=== PATIENT | female | born 1990 | race Caucasian/White ===

== ENCOUNTER 2024-07-16 10:00 | Outpatient (CLI) | payer MEDICAID, SELFPAY ==
[2024-07-16 16:46] LABS: Chlamydia DNA Amplified* NOT DETECTED (No Detected); GC DNA Amplified* NOT DETECTED (No Detected)
== END 2024-07-16 10:01 | disposition home or self-care (01) ==
PROVIDERS: Visit Provider Physician Assistant
DX: Z34.91 Encounter for supervision of normal pregnancy, unspecified, first trimester (principal); Z3A.11 11 weeks gestation of pregnancy
CPT/HCPCS: 83021; 86592; 86703; 86704; 86706; 86762; 86787; 86803; 86850; 86900; 86901; 87086; 87340; 87491; 87591

== ENCOUNTER 2024-09-27 10:01 | Outpatient (CLI) | payer MEDICAID, SELFPAY ==
--- NOTE | 2024-09-27 10:00 | CRLHL7_ITS ---
For Patients: As a result of the 21st Century Cures Act, medical imaging exams and procedure reports are released immediately into your electronic medical record. You may view this report before your referring provider. If you have questions, please contact your health care provider. INDICATION: Evaluate anatomy. COMPARISON: none TECHNIQUE: Real time birmingham scale imaging of the fetus was performed as well as color Doppler analysis of the umbilical vessels. FINDINGS: Sonographic imaging demonstrates a single living intrauterine gestation. Fetus demonstrates a regular cardiac rate of 139 beats per minute. Fetus has a vertex position. The placenta lies posteriorly without evidence of placenta previa. Placental edge 7.9 cm from the internal cervical os. Amniotic fluid volume appears normal. Single deepest vertical pocket: 6.3 cm. The cervix is closed and measures 4.9 cm in length. The composite ultrasound gestational age is calculated at 21 weeks 3 days with an estimated sonographic due date of 02/04/2025. The estimated weight is 421 grams which lies at the 92nd %. The following biometric measurements were obtained: Biparietal diameter: 5.2 cm/21 weeks 6 days 93rd% Head circumference: 19.1 cm/21 weeks 3 days 81st% Abdominal circumference: 16.8 cm/21 weeks 5 days 84th% Femur length: 3.5 cm/21 weeks 0 days 60th% The HC/AC ratio measures: 1.14 range (1.06-1.24) On anatomic survey, there is incomplete visualization of the cerebral ventricles, cavum septi pellucidi, cisterna magna and cerebellum. The nose, lips, and facial profile appear normal. The cervical, thoracic and lumbar spine are not well visualized. There is a normal four-chamber heart view and the left and right ventricular outflow tracts appear normal. The diaphragm and stomach appear normal. The bladder is normal. Bilateral pelviectasis measuring 5.9 millimeters on the left and 5.2 millimeters on the right. There is a normal three-vessel cord. Marginal placental cord insertion 1.96 cm from the placental edge. The four extremities appear normal. IMPRESSION: Bilateral renal pelviectasis measuring 5.9 millimeters on the left and 5.2 millimeters on the right. Follow-up in the 3rd trimester recommended. Incomplete visualization of the cerebellum, cisterna magna, nuchal fold, lateral ventricle and cavum septum pellucidum. Also incomplete visualization of the spine. Follow-up recommended. Marginal placental cord insertion 1.96 cm from the placental edge. Sonographic gestational age 21 weeks 3 days and sonographic due date of 02/04/2025. Sonographic age 1 week ahead of the clinical age. Estimated weight 92nd percentile. Abdominal circumference 84th percentile. Dictated by Usama Hopkins MD @ 09/27/2024 6:50:03 PM (Electronically Signed)
== END 2024-09-27 10:02 | disposition home or self-care (01) ==
LOC: US 10:01
PROVIDERS: Visit Provider Advanced Practice Midwife
DX: Z34.92 Encounter for supervision of normal pregnancy, unspecified, second trimester (principal); O35.8XX0 Maternal care for other (suspected) fetal abnormality and damage, not applicable or unspecified; Z3A.21 21 weeks gestation of pregnancy
CPT/HCPCS: 76805; 76817

== ENCOUNTER 2024-10-11 09:25 | Outpatient (CLI) | payer MEDICAID, SELFPAY | END 2024-10-11 09:26 | disposition home or self-care (01) | PROVIDERS: Visit Provider Advanced Practice Midwife | DX: Z36.2 Encounter for other antenatal screening follow-up (principal); R93.89 Abnormal findings on diagnostic imaging of other specified body structures; Z3A.22 22 weeks gestation of pregnancy | CPT/HCPCS: 76816 ==

== ENCOUNTER 2024-11-29 09:38 | Outpatient (CLI) | payer MEDICAID, SELFPAY ==
[2024-11-29 10:01] VITALS: BP 125/57; PULSE 91
[2024-11-29 10:02] VITALS: RESP 16; TEMP 36.6; O2SAT 97
[2024-11-29 10:27] LABS: Amnisure Rom* Negative
--- NOTE | 2024-11-29 11:24 | PC.OBNST ---
NST Note NST Note Start: 11/29/24 09:43 Freq: ONCE Status: Active Protocol: Document 11/29/24 10:40 CARLOS (Rec: 11/29/24 11:24 CARLOS No Response) NST Note 8 Para (# of births) 2 EDC 02/11/25 Gestational Age In Weeks & Days 29 Weeks & 3 Days Patient Presented with Complaint(s) of Leaking fluid Reactive Yes Appropriate for Gestational Age Yes AMNA Jung, RNC Date 11/29/24 Reactive Yes Appropriate for Gestational Age Yes AMNA Martinez, RNC Date 11/29/24 OB NST charge Yes Complete NST Note via Write Note Yes The provider's electronic signature indicates the NST is reactive/appropriate for gestational age. *Note to provider: If an addendum is required, open the patient's chart and click on the note under the Nurse/Allied Health tab.
== END 2024-11-29 10:44 | disposition home or self-care (01) ==
LOC: OB OUT 09:40 → OB 09:41
PROVIDERS: Visit Provider Midwife
DX: O47.03 False labor before 37 completed weeks of gestation, third trimester (principal); Z3A.29 29 weeks gestation of pregnancy
CPT/HCPCS: 59025; 84112; G0463

== ENCOUNTER 2024-12-02 14:39 | Outpatient (CLI) | payer MEDICAID, SELFPAY | END 2024-12-02 14:40 | disposition home or self-care (01) | LOC: NFLDREF 14:40 | PROVIDERS: Visit Provider Advanced Practice Midwife | DX: Z34.83 Encounter for supervision of other normal pregnancy, third trimester (principal); Z67.41 Type O blood, Rh negative | CPT/HCPCS: 86592; 86850; J2791 ==

== ENCOUNTER 2024-12-20 09:12 | Outpatient (CLI) | payer MEDICAID, SELFPAY ==
--- NOTE | 2024-12-20 09:15 | CRLHL7_ITS ---
For Patients: As a result of the Cures Act, medical imaging exams and procedure reports are released immediately into your electronic medical record. You may view this report before your referring provider. If you have questions, please contact your health care provider. OBSTETRICAL ULTRASOUND ??? FOLLOW-UP, 12/20/2024 INDICATION: Follow-up renal pelviectasis. CLINICAL HISTORY: LOCO by US: 02/11/2025 Gestational Age: 32 weeks 3 days COMPARISON: 10/11/2024, 09/27/2024 TECHNIQUE: Real-time birmingham-scale transabdominal imaging of the fetus was performed. FINDINGS: Fetus: Single Cervix: Not visualized positioning: Vertex Amniotic Fluid: 5.4 cm SDP Placenta technique: Transabdominal Placenta position: Posterior heart rate: 155 bpm IMPRESSION: Left renal pelvis measures 6.7 mm. Right renal pelvis measures 3.9 mm. Normal is considered less than 7 mm at this gestational age. USAMA WHITE M.D. Diagnostic Radiologist [email or web address] Transcribed: 10:[address]/Dictated by: Usama White MD @ 12/20/2024 9:48:00 AM (Electronically Signed)
== END 2024-12-20 09:13 | disposition home or self-care (01) ==
LOC: US 09:12
PROVIDERS: Visit Provider Advanced Practice Midwife
DX: O26.893 Other specified pregnancy related conditions, third trimester (principal); R93.89 Abnormal findings on diagnostic imaging of other specified body structures; Z3A.32 32 weeks gestation of pregnancy
CPT/HCPCS: 76816

== ENCOUNTER 2025-01-06 16:53 | Outpatient (CLI) | payer MEDICAID, SELFPAY ==
[2025-01-06 17:22] VITALS: PULSE 90; O2SAT 97
[2025-01-06 17:25] VITALS: BP 118/63; PULSE 90
[2025-01-06 17:32] LABS: Appearance Urine Clear (Clear); Bilirubin Urine Negative (Negative); Blood Urine Negative (Negative); Color Urine Yellow (Yellow); Glucose Urine Negative (Negative); Ketones Urine Negative (Negative); Leukocyte Esterase Urine 1+ (Negative); Nitrite Urine Negative (Negative); Protein Urine Trace (Negative); Specific Gravity Urine 1.025 (1.000-1.030); Urobilinogen Urine 0.2 (0.2-1.0)
[2025-01-06 17:52] LABS: Bacteria Urine Moderate; Squamous Epithelial Cell Urine Few (None-Few)
--- NOTE | 2025-01-06 18:05 | P.OBLDTN_ITS ---
OB - Triage/Final Diagnosis Visit Information Time Seen by Provider: 18:05 Date Seen: 01/06/25 Narrative: El is a 34 year old 8 para to at 34 and 6/7 weeks gestation, who presents with contractions every 7 minutes for an hour before presenting to the center. She states that her contractions have become more painful over the last 45 minutes. She reports her baby has been moving normally. Denies leaking fluid or vaginal bleeding. Contractions now our every 4-5 minutes. Cervical exam by nurse at 5:25 p.m. was 1.5/60%/-3. Urinalysis showed trace protein and 1+ leukocyte esterase with the micro analysis showing moderate bacteria, 2-5 rbc's/HPF and 2-5 wbc's/HPF soak possibly have a urinary tract infection. She was given a prescription for Macrobid 100 mg p.o. b.i.d. for 7 days while awaiting the urine culture results. The nurse will also recheck her at 1825 or later see if there is any evidence of cervical change. Both of her previous children were born at term. Recheck SVE at about 1900 to assess for cervical change. Encourage hydration. SVE unchanged after 2 hours. Given vistaril PO and morphine IM and one dose of macrobid prior to discharge. Reason for evaluation: threatened labor Evaluation Cervical dilation (cm): 1 Cervical effacement (%): 60 Laboratory results: Laboratory Tests 01/06/25 Range/Units 17:21 Urine Color Yellow (Yellow) Urine Appearance Clear (Clear) Urine pH 7.0 (5.0-8.5) Ur Specific Roy 1.025 (1.000-1.030) Urine Protein Trace A (Negative) Urine Glucose (UA) Negative (Negative) Urine Ketones Negative (Negative) Urine Blood Negative (Negative) Urine Nitrite Negative (Negative) Urine Bilirubin Negative (Negative) Urine Urobilinogen 0.2 (0.2-1.0) Ur Leukocyte Esterase 1+ A (Negative) Urine RBC 2-5 A (0-2) Urine WBC 2-5 (0-5) Ur Squamous Epith Cells Few (None-Few) Urine Bacteria Moderate A (None) Vital signs: Vital Signs - 24 hr 01/06/25 17:22 01/06/25 17:25 Pulse Rate 90 Blood Pressure 118/63 Pulse Oximetry 97 Fetus (Single) Heart Rate Baseline: 130 Fabricator Artificial Breast Variability: Moderate (6-25) Monitor Accelerations: Present Monitor Decelerations: None Station: -3
[2025-01-06] MEDS: hydrOXYzine pamoate 25 MG CAPSULE 100 MG PO (20:03)
[2025-01-06] MEDS: NITROFURANTOIN MONOHYD MACRO 100 MG CAPSULE PO (20:03)
[2025-01-06] MEDS: MORPHINE 10 MG/ML inj IM (20:06)
--- NOTE | 2025-01-06 20:38 | PC.OBNST ---
NST Note NST Note Start: 01/06/25 17:07 Freq: ONCE Status: Active Protocol: Document 01/06/25 17:07 RRP (Rec: 01/06/25 20:38 RRP [id number]) NST Note 8 Para (# of births) 2 EDC 02/11/25 Gestational Age In 34 Weeks & 6 Days Weeks & Days Patient Presented Contractions/cramping with Complaint(s) of Reactive Yes Appropriate for Yes Gestational Age AMNA Hinton RN Date 01/06/25 Reactive Yes Appropriate for Yes Gestational Age AMNA Ferguson Date 01/06/25 OB NST charge Yes Complete NST Note Yes via Write Note The provider's electronic signature indicates the NST is reactive/appropriate for gestational age. *Note to provider: If an addendum is required, open the patient's chart and click on the note under the Nurse/Allied Health tab.
== END 2025-01-06 20:25 | disposition home or self-care (01) ==
LOC: OB OUT 16:53 → OB 16:55 → OB OUT 16:57 → OB 17:04
PROVIDERS: Visit Provider Obstetrics & Gynecology
DX: O47.03 False labor before 37 completed weeks of gestation, third trimester (principal); Z3A.34 34 weeks gestation of pregnancy
CPT/HCPCS: 59025; 81001; 81003; 87086; G0463; A9270; J2270

== ENCOUNTER 2025-01-20 14:15 | Outpatient (CLI) | payer MEDICAID, SELFPAY ==
[2025-01-21 17:18] LABS: Strep B DNA Probe Negative (Negative)
[2025-01-21 18:18] LABS: Strep B Susceptibility Needed? No
== END 2025-01-20 14:16 | disposition home or self-care (01) ==
LOC: FRMREF 14:15
PROVIDERS: Visit Provider Registered Nurse
DX: Z34.93 Encounter for supervision of normal pregnancy, unspecified, third trimester (principal); Z3A.37 37 weeks gestation of pregnancy
CPT/HCPCS: 82728; 87081; 87653

== ENCOUNTER 2025-01-25 10:12 | Outpatient (RCR) | payer MEDICAID, SELFPAY ==
[2025-01-25 10:22] VITALS: BP 125/86; PULSE 90; RESP 16; TEMP 37.2; O2SAT 98
[2025-01-25] MEDS: SODIUM CHLORIDE 0.9 % (FLUSH) 10 ML SYRINGE IVF (10:48)
[2025-01-25] MEDS: IRON DEXTRAN COMPLEX 25 MG in 0.9 % SODIUM CHLORIDE 100 ml 100 ML 402 MG IVPB (11:20)
[2025-01-25 11:39] VITALS: BP 121/78; PULSE 86; RESP 16; O2SAT 97
[2025-01-25] MEDS: IRON DEXTRAN COMPLEX 975 MG in 0.9 % SODIUM CHLORIDE 250 ml 250 ML 270 MG IVPB (12:24)
[2025-01-25 13:33] VITALS: BP 130/81; PULSE 88; RESP 16; O2SAT 97
== END 2025-07-24 23:59 | disposition home or self-care (01) ==
LOC: CCIC 10:12
PROVIDERS: Visit Provider Clinical Nurse Specialist
DX: O99.013 Anemia complicating pregnancy, third trimester (principal); D50.9 Iron deficiency anemia, unspecified
CPT/HCPCS: 96365; J1750; J7050

== ENCOUNTER 2025-02-04 13:15 | Inpatient (IN) | payer MEDICAID, SELFPAY ==
[2025-02-04] VITALS (174 sets, daily range): BP systolic 76–156; BP diastolic 47–78; PULSE 67–105; RESP 18–20; TEMP 36.6–37.1; O2SAT 89–100; BMI 32.4
--- NOTE | 2025-02-04 13:54 | P.LDBA_ITS ---
Subjective History of Present Illness Narrative: Patient is being admitted to Labor and Delivery for induction of labor. She is a 34 year old at 39 0/7 weeks gestation. Her full history and physical was dictated by Dr. Gill on 10/28/24. Please see this for details. She feels well today. Her fetus is active. She is experiencing uterine contractions, though they are mild. She does feel lot of pressure in the pelvis and feels like the fetus a going to fall out. She has a history of fast labors and macrosomia. Specific Issues/Plans Partner: Heri, Son Awilda 8#13oz, daughter Alessandro 9#3oz, It is another boy! H&P: 01/28 Dr. Gill # history recurrent loss x4 3 losses at approx. 6 weeks, 1 loss at 11 weeks. No workup or evaluation performed #LGA-F/U US ordered for 32w-not completed. Declines when reviewed at 35wks. Will consider if measuring large for dates. # history of macrosomia. First , 9 lb 10 oz Normal 1 hour GTT at 133 No history of shoulder dystocia # Rh-negative RhoGAM: given 12/02 # COVID at 14 weeks # h/o abdominoplasty 2 years ago. Significant keloid scarring lower abdomen #Bilateral renal pelviectasis: resolved #Anemia at 29.6 weeks iron supplementation started Hemoglobin 9.6, ferritin 5.6 on January 20 weeks 6 days Iron infusion given 01/20/25 Imaging: Anatomy US-09/27/24- Bilateral renal pelviectasis measuring 5.9 millimeters on the left and 5.2 millimeters on the right. Follow-up in the 3rd trimester recommended. Incomplete visualization of the cerebellum, cisterna magna, nuchal fold, lateral ventricle and cavum septum pellucidum. Also incomplete visualization of the spine. Follow-up recommended. Marginal placental cord insertion 1.96 cm from the placental edge. Sonographic gestational age 21 weeks 3 days and sonographic due date of 02/04/2025. Sonographic age 1 week ahead of the clinical age. Estimated weight 92nd percentile. Abdominal circumference 84th percentile 10/11: Bilateral renal pelviectasis measuring 5.1 mm on the left, 2.7 mm on the right. Placental cord insertion 3.7 cm from placental edge. Normal spine, cisterna magna, lateral ventricles, cerebellum, and cavum septum pellucidum. 12/20: Cephalic, SDP 5.4 cm, posterior placenta, left renal pelvis 6.7 mm, right renal pelvis 3.9 mm. Vaccinations: COVID: declines Flu: declines Tdap: 12/20/2024 RSV: NA GBS negative 32 week mental health: 12/20/24 Last pap: Uncertain, prefers Pap OB - Problem Based A/P Delivery/Labor/Induction Plan Plan: induction Induction method: AROM OB Result Labs Blood Type: 0 (-) negative Rubella: immune RPR/VDLR: nonreactive GBS Status: negative HBsAG: negative OB Exam Physical Exam Vital signs: Pulse Ox 98 02/04/25 13:33 Detailed Labor and Delivery Exam Patient Gravid: yes Dilation (cm): 5 Effacement (%): 80 Cervix position: posterior Consistency: soft Contraction Frequency: 3-4 minutes Tachysystole: No Contraction intensity: Mild Fetus (Single) Station: -1 Amniotic Membrane Status: AROM Amniotic Membrane Fluid Description: Clear Heart Rate Baseline: 130 Monitor Accelerations: Present Monitor Decelerations: None 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
[2025-02-04 14:43] LABS: Basophils Percent Auto 0.3 % (0.0-3.0); Eosinophils Percent Auto 0.9 % (0.0-7.0); Hematocrit 33.1 % (33.0-51.0); Hemoglobin* 10.3 gm/dL (12.0-16.0); Immature Granulocytes Pct Auto 0.9 %; Lymphocytes Percent Auto 14.6 % (20-44); Mean Corpuscular HGB Conc 31 gm/dL (32-36); Mean Corpuscular Hemoglobin 24 pg (26-34); Mean Corpuscular Volume 78 fL (80-100); Monocytes Percent Auto 4.8 % (0.0-11.0); Neutrophils Percent Auto 78.5 % (42.0-72.0); Platelet Count* 178 K/uL (140-440); RDW Coefficient of Variation % 21.7 % (11.5-15.5); Red Blood Count 4.22 m/uL (4.00-5.20); White Blood Count* 12.82 K/uL (4.50-11.00)
[2025-02-04] MEDS: LACTATED RINGERS 1000 ML 1,000 ML 500 ML IV (14:45)
[2025-02-04 14:59] LABS: Slide Review Reflex No
[2025-02-04] MEDS: fentaNYL 250 MCG/5 ML inj 100 MCG EPIDURAL (15:44)
[2025-02-04] MEDS: LIDOCAINE 2% (PF) 5 ML VIAL EPIDURAL (15:44)
[2025-02-04] MEDS: ROPIVACAINE 0.2% 100 ml 100 ML 12 MG EPIDURAL (15:44)
[2025-02-04] MEDS: PHENYLEPHRINE 100 MCG/ML SYRINGE IVP ×7 (15:53→16:47)
--- NOTE | 2025-02-04 15:58 | PM.ANBPRC ---
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 Marital status: Significant other. Buddhist/cultural needs: no. Chemical or radiation exposure: no. Pre- tobacco use: no. Pre- alcohol use: no. Current tobacco use: no. Current alcohol use: no. Recreational drug use: no. Dietary restrictions: no. Blood transfusion acceptable in an emergency: yes. PSYCHOSOCIAL HISTORY: History of depression or currently depressed: no. Current or past physical, emotional, or sexual mistreatment: no. Problems that will make it hard to make it to appointments: no. What is your current living situation?: I presently have a place to live Problems where you live: no known problems In the past 12 months, utilities in danger of being shut off: no In past 12 months, lack of transportation kept you from medical appts, meetings, work, or getting things needed for daily living: no In the past 12 mos, have been you worried that your food would run out before you had money to buy more?: never true In the past 12 mos, the food you bought just didn't last and you didn't have money to buy more?: never true Smoking Status: Never smoker How often does anyone, including family, friends and others, physically hurt you: never How often does anyone, including family, friends and others, insult or talk down to you: never How often does anyone, including family, friends and others, threaten you with harm: never How often does anyone, including family, friends and others, scream or curse at you: never Meds Home Medications and Allergies Home Medications ?Medication ?Instructions ?Recorded ?Confirmed ?Type acetaminophen 500 mg tablet 500 mg PO Q6H PRN 07/16/24 02/04/25 History (Tylenol Extra Strength) vit 168-iron 27 mg-folic 1 cap PO .QD 08/17/24 02/04/25 History acid 800 mcg-omega3 235 mg capsule (One-A-Day -1) ferrous sulfate 325 mg (65 mg 325 mg PO Q OTHER DAY #60 tabs 12/02/24 02/04/25 Rx iron) tablet Held on 01/25/25. Instructions: constipation omeprazole magnesium 20 mg 20 mg PO QDAY #90 tabs 01/10/25 02/04/25 Rx tablet,delayed release (Prilosec OTC) ondansetron HCl 4 mg tablet 4 mg PO Q8-12H PRN nausea and 01/10/25 02/04/25 Rx vomiting #14 tabs Allergies Allergy/AdvReac Type Severity Reaction Status Date / Time No Known Drug Allergies Allergy Verified 01/28/25 09:51 Results Labs Labs: Laboratory Results - last 24 hr 02/04/25 14:33 WBC 12.82 H RBC 4.22 Hgb 10.3 L Hct 33.1 MCV 78 L MCH 24 L MCHC 31 L RDW Coeff of Rubio 21.7 H Plt Count 178 Neut % (Auto) 78.5 H Lymph % (Auto) 14.6 L [place] % (Auto) 4.8 Eos % (Auto) 0.9 Baso % (Auto) 0.3 Neut # (Auto) 10.10 H Lymph # (Auto) 1.90 [place] # (Auto) 0.60 Eos # (Auto) 0.10 Baso # (Auto) 0.00 Abs Immat Gran (auto) 0.10 Imm/Tot Granulo (auto) 0.9 Vital Signs Vital Signs: Last Vital Signs Pulse 77 02/04/25 15:56 BP 93/55 L 02/04/25 15:56 Pulse Ox 98 02/04/25 15:57 Weight: 102.512 kg Height: 177.8 cm Anesthesia Procedures Epidural Insertion Patient Location: OB Start Time: 15:00 Stop Time: 16:00 Start Date: 02/04/25 Stop Date: 02/04/25 Reason for Block: primary anesthetic Patient Position: sitting Performed By: Jhony Banuelos Preanesthetic Checklist: IV checked, risks and benefits discussed, surgical consent, monitors and equipment checked, pre-op evaluation, timeout performed and anesthesia consent Prep: chlorhexidine gluconate Monitoring: blood pressure monitoring, dormitory supervisor, continuous pulse oximetry and heart rate Approach: midline Vertebral Space: lumbar (1-5) Needle Type: Tuohy needle Injection Technique: continuous catheter Needle gauge: 17 Needle Length (cm): 10 cm Needle Insertion Depth (cm): 6 Catheter Gauge: 19 Catheter Type: multi-orifice Catheter at skin depth (cm): 12 Test Dose Result: negative and lidocaine 1.5% with epinephrine 1 to 200,000 Events: other
[2025-02-04] MEDS: ePHEDrine sulfate 5 MG/ML inj 10 MG IVP ×3 (16:03→16:54)
[2025-02-04] MEDS: LACTATED RINGERS 1000 ML 1,000 ML 125 ML IV ×2 (16:18→20:06)
[2025-02-04] MEDS: ONDANSETRON 2 MG/ML inj 4 MG IV (16:18)
[2025-02-04] MEDS: ACETAMINOPHEN 500 MG TABLET 1000 MG PO (18:21)
[2025-02-04 18:29] LABS: Hematocrit 31.4 % (33.0-51.0); Hemoglobin* 9.7 gm/dL (12.0-16.0); Mean Corpuscular HGB Conc 31 gm/dL (32-36); Mean Corpuscular Hemoglobin 25 pg (26-34); Mean Corpuscular Volume 80 fL (80-100); Platelet Count* 159 K/uL (140-440); Red Blood Count 3.93 m/uL (4.00-5.20); White Blood Count* 12.77 K/uL (4.50-11.00)
[2025-02-04 18:30] LABS: Slide Review Reflex No
[2025-02-04 18:47] LABS: Alanine Aminotransferase* 19 U/L (4-35); Aspartate Amino Transferase* 25 U/L (12-35); Blood Urea Nitrogen* 9 mg/dL (5-24); Creatinine* 0.6 mg/dL (0.5-1.5); Est. Creatinine Clearance* 142.87; Estimated Glomerular Filt Rate 121 ml/min
--- NOTE | 2025-02-04 22:16 | W.PM.OBVAGDE ---
OB Procedure Vag Delivery Mother Details Mother Details: The patient is a 34 year-old, 8, Para 2, admitted on 02/04/25 at Days gestation. : 8 Para: 2 Weeks Gestation: 39 Admission Date: 02/04/25 Additional Details Amniotic Membrane Status: AROM Amniotic Membrane Rupture Date: 02/04/25 Amniotic Membrane Rupture Time: 13:51 Amniotic Membrane Fluid Description: Clear Analgesia/Anesthesia Type: Epidural Waterbirth: No Pitcoin: No Intrapartal Events: Labor Augmentation Delivery augmentation: rupture of membranes Labor Onset: 14:15 Complete: 21:24 Pushin:28 Heart: heart tones during second stage were: reassuring with moderate variability between contractions with episodic variable decelerations to the 90's. There was minimal descent of the vertex with the 1st 3 contractions during pushing and position was noted to be LOP so verbal consent was obtained to perform a manual rotation which occurred with rotation of the vertex in the counter clockwise direction. There was a deceleration of the heart rate to the 70s for approximately 2 minutes and then returned slowly to the 120s after another 2 minutes. The remainder of the 2nd stage was as described above. Delivery Details Delivery Date: 02/04/25 Delivery Time: 21:53 Route of delivery: Infant Gender: Male Viability: Alive; Heart Rate Present Position at Delivery: OA Delivery Details: A live male was delivered from the direct OA position 21:53. Delivered via spontaneous vaginal delivery over an intact perineum. was placed on maternal abdomen.? Cord was clamped and cut after a 60+ second delay. Nose and mouth were bulb suctioned.? Infant weight: 4530 g, 10 lb 0 oz. No lacerations. There was a short shoulder dystocia alleviated with McRobert's position: <10 seconds. 1 Minute Interval Total Score: 8 5 Minute Interval Total Score: 9 Additional Details Shoulder Dystocia: Yes (< 10 seconds, alleviated with McRobert's position. ) Placenta Delivery Time: 22:03 Placental Delivery Description: Spontaneous Procedure Done: Global Blood Loss: 75 Laceration: None Blood Loss Measurement Type: QBL Bakri Used: No Sponge/Need Count Correct: Yes Cord Vessel Description: 3 Vessels Event Summary Status: Mother and were stable after delivery. El is planning on breast feeding.
[2025-02-04] MEDS: OXYTOCIN 30 unit/500 ML in NS 30 UNIT/500 ML BAG 300 UNIT IVPB (22:40)
[2025-02-05] VITALS (8 sets, daily range): BP systolic 118–133; BP diastolic 63–85; PULSE 78–100; RESP 16–20; TEMP 36.4–36.6; O2SAT 95–98
[2025-02-05] MEDS: IBUPROFEN 600 MG TABLET PO ×4 (00:16→18:52)
[2025-02-05] MEDS: ACETAMINOPHEN 500 MG TABLET 1000 MG PO ×4 (03:03→22:31)
[2025-02-05] MEDS: OXYCODONE 5 MG TABLET PO (06:01)
[2025-02-05 07:09] LABS: Hemoglobin* 8.9 gm/dL (12.0-16.0)
[2025-02-05] MEDS: DOCUSATE SODIUM 100 MG CAPSULE PO (09:37)
--- NOTE | 2025-02-05 10:53 | P.OBPN_ITS ---
OB - PN:Subj Subjective Date Seen: 02/05/25 Narrative: El is a 34 y.o. who was admitted to [facility] & D for elective IOL. ?She had an uncomplicated NVD.?The patient feels well. ?The pain is well controlled with current medications. Mild headache that resolved with sleep.?She is breastfeedi ng and reports things are going well.? the patient has done well.? Vitals have been stable.? She has remained afebrile.? Has a good appetite, is tolerating a general diet. ?She is voiding without difficulty.? She is passing gas and has not had a bowel movement.? She is ambulating and denies any dizziness.? Has Small amount of rubra lochia. OB - PN: Obj Exam Physical Exam: Vital signs: Temp Pulse Resp BP Pulse Ox O2 Del Method 97.9 F 88 20 126/76 96 Room Air 02/05/25 03:01 02/05/25 03:01 02/05/25 03:01 02/05/25 03:01 02/05/25 03:01 02/05/25 03:01 Narrative: GENERAL APPEARANCE:? normal affect, alert, no distress MOOD:? appropriate CHEST:? clear to auscultation HEART:? regular rate and rhythm ABDOMEN:? soft, non-tender the uterine fundus is At Umbilicus, Midline and is appropriate for the stage of recovery. PERINEUM:? mild edema of the perineum, there is a Perineal Laceration,? that is healing well. EXTREMITIES:? normal and no edema OB - PN: Obj Data Labs Labs: Laboratory Results - last 24 hr 02/04/25 02/04/25 02/05/25 14:33 18:23 06:41 WBC 12.82 H 12.77 H RBC 4.22 3.93 L Hgb 10.3 L 9.7 L 8.9 L Hct 33.1 31.4 L MCV 78 L 80 MCH 24 L 25 L MCHC 31 L 31 L RDW Coeff of Rubio 21.7 H Plt Count 178 159 Neut % (Auto) 78.5 H Lymph % (Auto) 14.6 L [place] % (Auto) 4.8 Eos % (Auto) 0.9 Baso % (Auto) 0.3 Neut # (Auto) 10.10 H Lymph # (Auto) 1.90 [place] # (Auto) 0.60 Eos # (Auto) 0.10 Baso # (Auto) 0.00 Abs Immat Gran (auto) 0.10 Imm/Tot Granulo (auto) 0.9 BUN 9 Creatinine 0.6 Estimated Creat Clear 142.87 Estimated GFR 121 AST 25 ALT 19 Screen Negative OB - PN: A/P Delivery Plan day: 1 Plan: routine care Comments: Iron supplement for anemia.
--- NOTE | 2025-02-05 13:46 | PM.ANPOST ---
Post Anesthesia Note Post Anesthesia Note Patient seen: Inpatient Respiratory Status: adequate Cardiovascular Status: adequate Mental Status: baseline Pain: adequate Temp: baseline Anesthetic awareness: N/A Complications: none Follow care: none
[2025-02-05] MEDS: FERROUS SULFATE 325 MG TABLET PO (18:52)
[2025-02-06] MEDS: IBUPROFEN 600 MG TABLET PO (00:40)
[2025-02-06 06:01] VITALS: BP 127/84; PULSE 84; RESP 16; TEMP 36.6; O2SAT 97
[2025-02-06] MEDS: ACETAMINOPHEN 500 MG TABLET 1000 MG PO (08:56)
[2025-02-06] MEDS: DOCUSATE SODIUM 100 MG CAPSULE PO (08:59)
--- NOTE | 2025-02-06 09:10 | PM.OBDSVD1 ---
DS: Providers Provider Time Seen by Provider: 09:11 Date Seen: 02/06/25 Date of admission: 02/04/25 13:15 Primary care physician: Not a Local Provider Admitting Clinician: Luci Talamantes MD Attending Physician on discharge: Reagan Ramon MD Date of Discharge: 02/06/25 DS: Diagnosis Discharge Diagnosis (1) (normal spontaneous vaginal delivery): Status: Acute Problem details: Boy, 10#0oz, 4530gm, no lacerations. Apgars 8/9. 9:53Pm (2) Anemia: Status: Acute Exam Narrative: Exam Narrative: GENERAL APPEARANCE:? normal affect, alert, no distress MOOD:? appropriate CHEST:? clear to auscultation HEART:? regular rate and rhythm ABDOMEN:? soft, non-tender the uterine fundus is At Umbilicus, Midline and is appropriate for the stage of recovery. PERINEUM:? mild edema of the perineum. EXTREMITIES:? normal and no edema Const: Vital Signs, click to edit/add: Vital Signs - 24 hr 02/05/25 09:30 02/05/25 12:52 02/05/25 15:52 Temperature 97.7 F 97.8 F 97.8 F Pulse Rate [Pulse Oximeter] 84 90 90 Respiratory Rate 18 16 16 Blood Pressure [Ri ght Arm] 118/78 119/78 123/81 Pulse Oximetry 95 96 Oxygen Delivery Me thod Room Air Room Air 02/05/25 22:33 02/06/25 06:01 Temperature 97.6 F 97.8 F Pulse Rate [Pulse Oximeter] 78 84 Respiratory Rate 16 16 Blood Pressure [Ri ght Arm] 133/85 127/84 Pulse Oximetry 98 97 Oxygen Delivery Me thod Room Air Room Air OB - DS: Summary Hospital Course Hospital Course: The patient is a 34 year old G 8 P 3053 at 390/7 weeks gestation that was admitted to the Center on 02/04/25 for induction of labor due to suspected macrosomia. She had an uncomplicated vaginal delivery. She delivered a viable male infant. She is breast feeding. the patient has done well. Anemic, but patient denies shortness of breath, heart palpitations or lightheadedness with ambulation or position changes. Plan to continue oral iron therapy. Peripartum Data delivery method: Vaginal Laceration description: None complications: none Gender: Male Discharge Plan: Home Status at Discharge Functional status at discharge: independent ambulation Overall status at discharge: patient is progressing back to baseline Time Spent with Patient Time attestation: Total time spent providing and/or coordinating discharge services: Time spent: Less than 30 minutes Discharge Plan Discharge Disposition: Home, Self-Care Date of Admission: 02/04/25 13:15 Primary Care Provider: Provider,Not a Local Condition: Stable Anticipated Discharge Date/Time: 02/06/25 09:13 Discharge Medications: New ferrous sulfate 325 mg (65 mg iron) Tablet 325 mg PO Q48H Qty: 60 0RF docusate sodium 100 mg Capsule 100 mg PO BID PRN (Reason: constipation) Qty: 30 0RF ibuprofen 600 mg Tablet 600 mg PO Q6H PRNQty: 30 0RF Continued acetaminophen [Tylenol Extra Strength] 500 mg tablet 500 mg PO Q6H PRN One-A-Day -1 27 mg iron- 800 mcg-235 mg capsule 1 cap PO .QD ferrous sulfate 325 mg (65 mg iron) tablet 325 mg PO Q OTHER DAY Qty: 60 1RF omeprazole magnesium [Prilosec OTC] 20 mg tablet,delayed release (DR/EC) 20 mg PO QDAY Qty: 90 0RF Discontinued ondansetron HCl 4 mg tablet 4 mg PO Q8-12H PRN (Reason: nausea and vomiting) Qty: 14 0RF Discharge Orders: Discharge Order (Routine); Ordered 02/06/25 Ordered By: Lara Ramon Patient Education: OB Vaginal/Breast Feeding Activity Level: Activity as Tolerated Activity Detail: Nothing vaginally for 6 weeks Discharge Diet: Regular Follow Up Appointments: Provider,Not a Local [Primary Care Provider, Family Practice] Forms: MyHealth Info Instructions
[2025-02-06 10:20] VITALS: BP 131/77; PULSE 97; RESP 16; TEMP 36.5; O2SAT 96
[2025-02-06 15:43] LABS: Rapid Plasma Reagin (RPR) Non Reactive (Non Reactive)
== END 2025-02-06 12:10 | disposition home or self-care (01) | DRG 807 ==
PROVIDERS: Obstetrics & Gynecology; Admitting Provider Obstetrics & Gynecology; Visit Provider Obstetrics & Gynecology
DX: O26.893 Other specified pregnancy related conditions, third trimester (principal); Z37.0 Single live birth; Z67.41 Type O blood, Rh negative; O36.63X0 Maternal care for excessive fetal growth, third trimester, not applicable or unspecified; O99.02 Anemia complicating childbirth; D64.9 Anemia, unspecified; Z3A.39 39 weeks gestation of pregnancy
CPT/HCPCS: 01967; 36415; 36430; 82565; 84450; 84460; 84520; 85018; 85025; 85027; 85461; 86592; 94761; A9270; J2405; J2791; J2795; J3010; J7120

== ENCOUNTER 2025-02-26 05:17 | Emergency (ER) | payer MEDICAID, SELFPAY ==
--- OUTSIDE RECORDS SUMMARY | 2025-02-26 05:20 | XMS_ITS | Clinical Summary ---
Author Organization [facility] Address [address] [place] [address] Care Team Providers Care Databases Computer Consultant Name Role Phone Paloma Isbell BENCH WORKER BINDING Unavailable [phone] Md Nadeem Primary Care Provider [phone] Allergies Active Allergy Reactions Criticality Noted Date Comments Hydrocodone Nausea Only 02/22/2017 nausea Medications No known medications Active Problems Problem Noted Date Diagnosed Date Routine health maintenance 11/07/2009 Overview (11/07/2009): Well Child 09/2008 Pap Smear 09/2008 Immunizations Immunization Administration Dates Next Due DTP 10/02/1995, 2,05/04/1991,02/19/1991, 1990 Hepatitis B (Peds) 02/21/1997,09/24/1996, 997 Hib Conjugate, Unspecified 01/31/1992 Human Papilloma Virus Vaccine 12/24/2007, 008,06/24/2007 Inactivated Polio Vaccine 10/02/1995,05/04/1992, 02/19/1991,1990 Influenza A (H1N1), Inactivated 08/01/2009 Influenza, IIV3 (Age >=3 years) 05/10/2009,04/14,06/24/2007 MMR 06/22/2002,01/31/1992 Td (Age >=7 Years) 06/22/2002 Tdap 02/08/2010 Varicella Vaccine 01/27/2008,09/20/2002 Family History Medical History Relation Name Comments Hypertension Father Henry Lopez Relation Name Status Comments Father Henry Lopez Alive Mother Mary Palmer Alive Social History Tobacco Use Types Packs/Day Years Used Date Smoking Tobacco: Never Smokeless Tobacco: Never Alcohol Use Standard Drinks/Week Comments Yes 0 (1 standard drink = 0.6 oz pur e alcohol) socially PHQ-2 Answer Date Recorded PHQ-2 Score 0 09/06/2019 Social Connections Answer Date Recorded Frequency of Communication with Friends and Fami ly Not on file 03/10/2023 Financial Resource Strain Answer Date R ecorded Difficulty of Paying Living Expenses Not on file 08/11/2021 Difficulty of Paying Living Expenses Not on file 08/11/2021 Comments No Sex and Gender Information Value Date Recorded Sex Assigned at Not on file Legal Sex Female 7:48 AM GERENTOLOGICAL 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 Gender Identity Not on file Sexual Orientation Not on file Obstetrics History Para Term AB IAB SAB Ectopic Multiple Livin g Live Births 2 0 0 0 0 0 0 0 0 0 Date Outcome GA Total Labor Labor/2nd/3rd Weight Sex Type Anes PTL Vannesa A1 A5 Name Clin Last Filed Vital Signs Vital Sign Reading Time Taken Comments Blood Pressure 110/72 03/10/2023 10:06 AM CDT Pulse 92 03/10/2023 10:06 AM CDT Temperature 36.7 C (98 F) 09/27/2019 1:36 PM GERENTOLOGICAL 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 Respiratory Rate 20 03/10/2023 10:06 AM CDT Oxygen Saturation 96% 09/27/2019 1:36 PM GERENTOLOGICAL 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 Inhaled Oxygen Concentration - - Weight 86.7 kg (191 lb 3.2 oz) 03/10/2023 10:06 AM CDT Height 174 cm (5' 8.5) 03/10/2023 10:06 AM CDT Body Mass Index 28.65 03/10/2023 10:06 AM CDT Plan of Treatment Health Maintenance Due Date Last Done Comments Hepatitis C screening for age 18-79 2008 Pap test for age 21-65 02/08/2013 02/08/2010 Tetanus booster 02/09/2020 02/08/2010, 06/22/2002 Depression screening for age 12+ 09/27/2020 09/27/2019, 09/07/2019, 09/06/2019, Additional history exists BMI (ht and wt on same day) for age 18+ 03/10/2024 03/10/2023, 09/27/2019, 09/06/2019, Additional history exists COVID-19 vaccine series (2023- season) 2024 Influenza Vaccine (#1) 2025 9, 04/14/2009, 06/24/2007 Hepatitis B series for 19+ Completed 02/21, 09/24/1996, 08/23/1996 HIV for age 15-65 Completed 02/13/2010 Pneumococcal series for age 6-49 Aged Out No longer eligible based on patient's age to complete this topic Procedures Procedure Name Priority Date/Time Associated Diagnosis Comments ANTI HIV 1/2 Routine 02/13/2010 3:01 PM CDT Screening for STDs (sexually transmitted diseases) STRATEGIC PARTNER DEVELOPMENT MANAGER THIN PREP PAP SCREEN IMAGED Routine 02/08/2010 1:32 PM CDT Well adolescent visit from Last 3 Months or Most Recently Relevant to Health Maintenance Results * ANTI HIV 1/2 (02/13/2010 3:01 PM CDT) ANTI HIV 1/2 Non-reacti ve [facility] Blood specimen (specimen) BLOOD SPECIMEN / Unknown 02/13/2010 3:01 PM CDT 02/13/2010 2:50 PM CDT Luci Pena CNBeau SEND OUTS Final Result [facility] [place] ZIP [address] [place] [id number] * (ABNORMAL) STRATEGIC PARTNER DEVELOPMENT MANAGER THIN PREP PAP SCREEN IMAGED (02/08/2010 1:32 PM CDT) CYTOLOGY CYTOPATHOLOGY REPORT [facility] Status: Final Status [id number] CLINICAL INFORMATION Last Date of LMP :02/08/10 Last Pap Date :09/15/08 Last Pap Result :SQCA ABN Kemp/Bx Past 5 YRS :None Hormone Usage :BCP/OCP/Patch/Ri ng Menstrual Status :Regular Periods Kemp/Bx done today :No Additional Information :None given HPV Request :HPV if ASCUS SPECIMEN SOURCE :Cervical/vaginal ThinPrep Vial, screening SPECIMEN ADEQUACY :Specimen processed and examined, but unsatisfactory for evaluation of epithelial abnormality because of: Scant cellularity INTERPRETATION/RE SULT Unsatisfactory for evaluation (UNS) Cytology 1st Screener :steffne Cytology 2nd Screener :adalberto Signed by :adalberto This specimen was screened by the FDA approved ThinPrep Imaging System and manually reviewed. NOTE: The Pap test is a screening technique, not a diagnostic procedure. It is used primarily to screen for squamous cancers and precursor lesions. Published studies have shown that it is subject to both false negative and false positive results. The pap test should not be used as the sole means to diagnose or exclude pre-malignant and malignant lesions. COLLECTED: 0 ACCESSIONED: 02/09/10 SIGNED: 02/19/10 [facility] PAP [place] CODE UNS [facility] Cervical/Vaginal (Cervical/Vagina l) 02/08/2010 1:32 PM CDT 02/08/2010 1:30 PM CDT us Luci Pena CNM PATHOLOGY/CYTOLOGY Final Resu lt [facility] INTERNAL ZIP [address] [address] from Last 3 Months or Most Recently Relevant to Health Maintenance Insurance [place]ICAID [place] [employer] Care Teams Databases Computer Consultant Relationship Specialty Start Date End Date Md Nadeem [address] [place] [address] PCP - General 02/07/21 Paloma Isbell, BENCH WORKER BINDING [address] [address] Chef & Owner 02/18/18
--- OUTSIDE RECORDS SUMMARY | 2025-02-26 05:20 | XMS_ITS | Clinical Summary ---
Author Organization [facility] Address [address] [place] [address] Care Team Providers Care Lang Path Therapist Name Role Phone Unavailable Primary Care Provider Unavailabl e Source Comments You are receiving this document as you are listed as the primary care provider,follow-up provider, or the patient has been referred to you for consultation.This is in compliance with the Medicare andMedicaid EHR Incentive Program,which states Providers who transition their patient to another setting of careor provider of care or refers their patient to another provider of care shouldprovide summary care record for each transition of care or referral. [facility] Allergies No known active allergies Medications vitamin-ferrous fumarate-folic acid (PRENATALPLUS) 27-1 MG tablet Take 1 Tablet by mouth daily. Active Active Problems Problem Noted Date Diagnosed Date PCOS (polycystic ovarian syndrome) Recurrent loss Ruptured ovarian cyst Overview (06/14/2024): denies surgical intervention Estimated Date of Delivery Comme nts Yes 02/11/2025 Based on Ultraso und, Entered from OB Ultrasound Reporting. Immunizations Immunization Administration Dates Next Due 4vHPV (Gardasil) 12/24/2007,08/31/2007, 7 DTP 10/02/1995, 2,05/04/1991,02/19/1991, Flu Vac (3+ yrs) 05/10/2009,04/14/2009, 7 [id number] 08/01/2009 HepB Ped/Adol (0-18 yrs) 02/21/1997,09/24/1996,0 08/23/1996 Hib, Unspecified Formulation 01/31/1992 IPV (Polio) 10/02/1995,05/04/1992,02/19/1991 ,1990 MMR 06/22/2002,01/31/1992 Td 06/22/2002 Tdap 02/08/2010 Varicella 01/27/2008,09/20/2002 Social History Tobacco Use Types Packs/Day Years Used Date Smoking Tobacco: Never Smokeless Tobacco: Never Tobacco Cessation:Counseling Given: Not Answered Alcohol Use Standard Drinks/Week Comments Not Currently 0 (1 standard drink = 0.6 oz pur e alcohol) Depression Answer Date Recor ded Last EPDS Total Score 0 09/18/2024 Last EPDS Self Harm Result Not on file 09/18 Estimated Date of Delivery Comme nts Yes 02/11/2025 Based on Ultraso und, Entered from OB Ultrasound Reporting. Sex and Gender Information Value Date Recorded Sex Assigned at Not on file Legal Sex Female 4:40 AM CDT Gender Identity Not on file Sexual Orientation Not on file Occupation Industry Job Start Date Job End Date [employer] Not on file Not on file Not on file Last Filed Vital Signs Vital Sign Reading Time Taken Comments Blood Pressure 117/72 06/14/2024 2:38 PM OIL CHANGE TECHNICIAN Pulse 82 06/14/2024 2:38 PM OIL CHANGE TECHNICIAN Temperature - - Respiratory Rate - - Oxygen Saturation - - Inhaled Oxygen Concentration - - Weight 83.3 kg (183 lb 9.6 oz) 06/14/2024 2:38 P M OIL CHANGE TECHNICIAN Height 172.7 cm (5' 8) 06/14/2024 2:38 PM OIL CHANGE TECHNICIAN Body Mass Index 27.92 06/14/2024 2:38 PM OIL CHANGE TECHNICIAN Plan of Treatment Health Maintenance Due Date Last Done Comments Cervical Cancer Screening Due 1990 Hep C Screening (Preventive Services) 1990 Adult Preventive Visit 2008 DTaP/Tdap/Td Vaccine (7 - Tdap) 02/09/2020 02/08/2010, 06/22/2002, 10/02/1995, Additional history exists COVID-19 Vaccine ( season) 2024 Influenza Vaccine (#1) 2025 9, 04/14/2009, 06/24/2007 Zoster/Shingles Vaccine (1 of 2) 2040 Hib Vaccine Completed 01/31/1992 IPV (Polio) Vaccine Completed 10/02/1995, 05/04/1992, 02/19/1991, Additional history exists HepB Vaccine Completed 02/21/1997, 09/11, 08/23/1996 HPV Vaccine Completed 12/24/2007, 08/12, 06/24/2007 HIV Screening (Preventive Services) Completed 02/13/2010 HepA Vaccine Aged Out No longer eligi ble based on patient's age to complete this topic MCV4 Vaccine Aged Out No longer eligi ble based on patient's age to complete this topic Meningococcal B Vaccine Aged Out No l onger eligible based on patient's age to complete this topic Pneumococcal Vaccine Aged Out No long er eligible based on patient's age to complete this topic Insurance [facility]
[2025-02-26 05:24] VITALS: BP 122/77; PULSE 96; RESP 16; TEMP 36.9; O2SAT 98; BMI 28.0
--- NOTE | 2025-02-26 05:33 | ED.GENADULT ---
HPI - General Adult General Time Seen by Provider: 05:33 Date Seen: 02/26/25 Chief complaint: Unspecified Complaint, Adult Stated complaint: mastitis/infection? Time Seen by Provider: 02/26/25 05:30 Source: patient, RN notes reviewed and old records reviewed Mode of arrival: ambulatory Limitations: no limitations History of Present Illness HPI narrative: 34-year-old female who presents today with fever chills, also body aches starting yesterday. Denies runny nose, cough, sore throat, chest pain, abdominal pain, urinary symptoms, vaginal bleeding. Patient is about 3 weeks , has been breast-feeding in notes breast pain as well. Taking ibuprofen for symptoms. Related Data Home Medications ?Medication ?Instructions ?Recorded ?Confirmed acetaminophen 500 mg tablet 500 mg PO Q6H PRN 07/16/24 02/04/25 (Tylenol Extra Strength) vit 168-iron 27 mg-folic 1 cap PO .QD 08/17/24 02/04/25 acid 800 mcg-omega3 235 mg capsule (One-A-Day -1) Previous Rx's ?Medication ?Instructions ?Recorded ferrous sulfate 325 mg (65 mg 325 mg PO Q OTHER DAY #60 tabs 12/02/24 iron) tablet omeprazole magnesium 20 mg 20 mg PO QDAY #90 tabs 01/10/25 tablet,delayed release (Prilosec OTC) docusate sodium 100 mg capsule 100 mg PO BID PRN constipation #30 02/06/25 caps ferrous sulfate 325 mg (65 mg 325 mg PO Q48H #60 tabs 02/06/25 iron) tablet ibuprofen 600 mg tablet 600 mg PO Q6H PRN #30 tabs 02/06/25 Allergies Allergy/AdvReac Type Severity Reaction Status Date / Time No Known Drug Allergies Allergy Verified 02/26/25 05:28 [facility] Medical History Abnormal ultrasound ?R93.89 - Abnormal findings on diagnostic imaging of other specified body structures (ICD-10) Dilation of renal pelvis of fetus Surgical History History of abdominoplasty ?Z98.890 - Other specified postprocedural states (ICD-10) Family History Other Alcohol dependence Alzheimers disease Cardiovascular disease High blood pressure Uterine cancer Social History (Updated 01/28/25 @ 10:22 by Katerine Gill MD) Narrative: 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 Marital status: Significant other. Orthodoxy/cultural needs: no. Chemical or radiation exposure: no. Pre- tobacco use: no. Pre- alcohol use: no. Current tobacco use: no. Current alcohol use: no. Recreational drug use: no. Dietary restrictions: no. Blood transfusion acceptable in an emergency: yes. PSYCHOSOCIAL HISTORY: History of depression or currently depressed: no. Current or past physical, emotional, or sexual mistreatment: no. Problems that will make it hard to make it to appointments: no. What is your current living situation?: I presently have a place to live Problems where you live: no known problems In the past 12 months, utilities in danger of being shut off: no In past 12 months, lack of transportation kept you from medical appts, meetings, work, or getting things needed for daily living: no In the past 12 mos, have been you worried that your food would run out before you had money to buy more?: never true In the past 12 mos, the food you bought just didn't last and you didn't have money to buy more?: never true Smoking Status: Never smoker How often does anyone, including family, friends and others, physically hurt you: never How often does anyone, including family, friends and others, insult or talk down to you: never How often does anyone, including family, friends and others, threaten you with harm: never How often does anyone, including family, friends and others, scream or curse at you: never Exam Narrative: Exam Narrative: General: Well-developed and well-nourished, no acute distress Head: Atraumatic and normocephalic Eyes: Pupils are equal reactive, extraocular motions intact, conjunctiva clear ENT: External nose and ears are normal, posterior pharynx without erythema or exudate Neck: No midline cervical tenderness, full spontaneous range of motion the neck, trachea midline, no adenopathy Heart: Regular rate and rhythm no murmurs or thrills Lungs: Clear to auscultation bilaterally without wheezes or crackles Abdomen: Soft, nontender, nondistended with active bowel sounds Musculoskeletal: No tenderness, deformity, or edema Neurologic: Awake, alert, and oriented x3, no gross focal neurologic deficits, cranial nerves intact as tested Psych: Mood and affect are appropriate Skin: No rashes Breast: Marked tenderness, induration, mild erythema the inferior outer quadrant of the breast Const: Vital Signs, click to edit/add: Vital Signs - 24 hr 02/26/25 05:24 Temperature 98.5 F Pulse Rate [Right Pulse Oximeter] 96 Respiratory Rate 16 Blood Pressure [Ri ght Upper Arm] 122/77 Pulse Oximetry 98 Oxygen Delivery Me thod Room Air Course Course ED Course: Patient seen examined, presents with fever, chills, body aches, and breast pain starting yesterday. Pain is more so on the left breast. She has erythema, tenderness, in induration of the inferior outer quadrant of left breast consistent with mastitis although the redness is fairly subtle. I did consider other possible causes including endometritis, however no for foul-smelling vaginal discharge, no abdominal pain. No upper respiratory symptoms, no cough or crackles on exam to suggest pneumonia, no dysuria or hematuria to suggest urinary tract infection. Patient will be started on Keflex as we did not have dicloxacillin in [facility] and would like to get started on antibiotics as soon as possible. Vital Signs Vital signs: Initial Vital Signs Temperature 98.5 F 02/26/25 05:24 Temperature Source Temporal Artery Scan 02/26/25 05:24 Pulse Rate 96 02/26/25 05:24 Pulse Rhythm Regular 02/26/25 05:24 Pulse Strength 3+ Normal 02/26/25 05:24 Respiratory Rate 16 02/26/25 05:24 Blood Pressure 122/77 02/26/25 05:24 Blood Pressure Mean 92 02/26/25 05:24 Blood Pressure Position Sitting 02/26/25 05:24 Pulse Oximetry 98 02/26/25 05:24 Oxygen Delivery Method Room Air 02/26/25 05:24 Vital Signs Temperature 98.5 F 02/26/25 05:24 Pulse Rate 96 02/26/25 05:24 Respiratory Rate 16 02/26/25 05:24 Blood Pressure 122/77 02/26/25 05:24 Pulse Oximetry 98 02/26/25 05:24 Oxygen Delivery Method Room Air 02/26/25 05:24 Temperature 98.5 F 02/26/25 05:24 Pulse Rate 96 02/26/25 05:24 Respiratory Rate 16 02/26/25 05:24 Blood Pressure 122/77 02/26/25 05:24 Pulse Oximetry 98 02/26/25 05:24 Oxygen Delivery Method Room Air 02/26/25 05:24 Discharge Plan Discharge Clinical Impression: Mastitis Patient Disposition: Home, Self-Care Condition: Stable Instructions: Mastitis (ED) Additional Instructions: Tylenol and ibuprofen for pain and fever Continue or pumping Activity Level: Activity as Tolerated Discharge Diet: Regular Prescriptions: No Action acetaminophen [Tylenol Extra Strength] 500 mg tablet 500 mg PO Q6H PRN One-A-Day -1 27 mg iron- 800 mcg-235 mg capsule 1 cap PO .QD ferrous sulfate 325 mg (65 mg iron) tablet 325 mg PO Q OTHER DAY Qty: 60 1RF omeprazole magnesium [Prilosec OTC] 20 mg tablet,delayed release (DR/EC) 20 mg PO QDAY Qty: 90 0RF ferrous sulfate 325 mg (65 mg iron) Tablet 325 mg PO Q48H Qty: 60 0RF docusate sodium 100 mg Capsule 100 mg PO BID PRN (Reason: constipation) Qty: 30 0RF ibuprofen 600 mg Tablet 600 mg PO Q6H PRNQty: 30 0RF Follow Up/Referrals: Provider,Not a Local [Primary Care Provider, Family Practice] Stand Alone Forms: MyHealth Info Instructions
== END 2025-02-26 05:47 | disposition home or self-care (01) ==
PROVIDERS: Emergency Provider Family Medicine
DX: N61.0 Mastitis without abscess (principal)
CPT/HCPCS: 99283